=== PATIENT | male | born 1980 | race Caucasian/White ===

== ENCOUNTER 2017-10-01 15:17 | Emergency (ER) | payer OTHER ==
[2017-10-01 15:28] VITALS: BP 121/90
--- NOTE | 2017-10-01 16:13 | EDM.PDOC ---
ED HPI GENERAL MEDICAL PROBLEM - General Chief Complaint: Chest Pain Stated Complaint: CHEST TIGHTNESS/DIZZINESS Time Seen by Provider: 10/01/17 15:25 Source of Information: Reports: Patient, RN Notes Reviewed History Limitations: Reports: No Limitations - History of Present Illness INITIAL COMMENTS - FREE TEXT/NARRATIVE: The patient states that he has had retrosternal chest tightness that has been coming and going for the past 2 weeks. It is a discomfort, not a pain. It will last for about 10-60 minutes, 2-4 times a day, and is not related to anything that the patient is doing, including exertion. The pain does not radiate. He does not have any associated dyspnea, nausea, or diaphoresis, although he has been feeling anxious recently. He states that he has been aware of his heartbeat , although it has been regular, and of a normal rate, not tachycardic or irregular. The patient states that he had similar symptoms in 2009, and after evaluation, was told that it was due to to drinking excessive energy drinks. He was also diagnosed with esophagitis in 2009, by EGD. The patient states that he was seen by his PCP, Dr. Chatman, at the [facility] about 2 weeks ago. An ECG, OBTAINED WHILE HE HAD THE DISCOMFORT, was normal. Dr. Chatman recommended that he come to the ED for additional tests. The patient's other PCP is Tiana Lara. Treatments [employer]: Reports: Other (see below) Other Treatments [employer]: citalpram at 0700 -clonzepam 0700 scheduled Middle Chest Pain Score (Numeric/FACES): 2 - Related Data Allergies Allergy/AdvReac Type Severity Reaction Status Date / Time levofloxacin [From Levaquin] Allergy Joint Pain Verified 05/09/16 12:23 Home Meds: Home Meds ClonazePAM [KlonoPIN] 0.5 mg PO DAILY 09/20/15 [History] Escitalopram [Lexapro] 15 mg PO DAILY 09/20/15 [History] Mesalamine [Lialda] 3 tab PO DAILY 09/20/15 [History] Omeprazole [Prilosec] 20 mg PO DAILY 09/20/15 [History] Cetirizine HCl [Zyrtec] 10 mg PO DAILY PRN 05/09/16 [History] Clotrimazole [Clotrimazole 1%] 1 appful .XX BID 05/09/16 [History] Past Medical History HEENT History: Reports: Allergic Rhinitis Cardiovascular History: Reports: High Cholesterol Gastrointestinal History: Reports: GERD, Inflammatory Bowel Disease (Ulcerative colitis), Other (See Below) (Esophagitis) Psychiatric History: Reports: Anxiety, Depression, Panic Attack, PTSD Endocrine/Metabolic History: Reports: Vitamin D Deficiency - Past Surgical History HEENT Surgical History: Reports: Oral Surgery ([place] teeth extraction) GI Surgical History: Reports: Colonoscopy (x 7), EGD (x 2) Social & Family History - Tobacco Use Smoking Status *Q: Former Smoker Tobacco Use Within Last Twelve Months: Snuff/Dip (Chews 6-8 packets per day x last 1.5 years) Years of Tobacco use: 20 Packs/Tins Daily: 1.5 Month Tobacco Last Used: Quit 2015 Second Hand Smoke Exposure: No - Caffeine Use Caffeine Use: Reports: Coffee, Soda - Alcohol Use Alcohol Use History: Yes Alcohol Use Frequency: Socially - Recreational Drug Use Recreational Drug Use: No - Living Situation & Occupation Living situation: Reports: , with Spouse, with Family (2 kids) Occupation: Employed ED ROS GENERAL - Review of Systems Review Of Systems: See Below Constitutional: Reports: No Symptoms HEENT: Reports: No Symptoms Respiratory: Reports: No Symptoms Cardiovascular: Reports: No Symptoms Endocrine: Reports: No Symptoms GI/Abdominal: Reports: Diarrhea (slight, last night) : Reports: No Symptoms Musculoskeletal: Reports: No Symptoms Skin: Reports: No Symptoms Neurological: Reports: No Symptoms Psychiatric: Reports: No Symptoms Hematologic/Lymphatic: Reports: No Symptoms Immunologic: Reports: No Symptoms ED EXAM, GENERAL - Physical Exam Exam: See Below Exam Limited By: No Limitations General Appearance: Alert, WD/WN, No Apparent Distress Eye Exam: Bilateral Eye: Normal Inspection Ears: Normal External Exam, Hearing Grossly Normal Nose: Normal Inspection, No Blood Throat/Mouth: Normal Inspection, Normal Lips, Normal Voice, No Airway Compromise Head: Atraumatic, Normocephalic Neck: Normal Inspection, Full Range of Motion Respiratory/Chest: No Respiratory Distress, Lungs Clear, Normal Breath Sounds, No Accessory Muscle Use, Chest Non-Tender (including to sternum) Cardiovascular: Normal Peripheral Pulses, Regular Rate, Rhythm, No Gallop, No JVD, No Murmur, No Rub Peripheral Pulses: 4+: Radial (L), Radial (R) GI/Abdominal: Normal Bowel Sounds, Soft, Non-Tender, No Organomegaly, No Distention, No Abnormal Bruit, No Mass (Male) Exam: Deferred Rectal (Males) Exam: Deferred Back Exam: Normal Inspection, Full Range of Motion, NT Extremities: Normal Inspection, Normal Range of Motion, No Pedal Edema, Normal Capillary Refill Neurological: Alert, Oriented, Normal Cognition, No Motor/Sensory Deficits Psychiatric: Normal Affect Skin Exam: Warm, Dry, Intact, Normal Color, No Rash EKG INTERPRETATION EKG Date: 10/01/17 Time: 16:01 Rhythm: NSR Rate (Beats/Min): 63 [place]: Normal P-Wave: Present QRS: Normal ST-T: Other (Diffuse J-point elevation) QT: Normal (Early transition) Comparison: No Change (02/24/2016) Course - Vital Signs Last Recorded V/S: Last Vital Signs Temp 36.4 C 10/01/17 15:27 Pulse 67 10/01/17 15:27 Resp 20 10/01/17 15:27 BP 121/90 10/01/17 15:27 Pulse Ox 96 10/01/17 15:27 - Orders/Labs/Meds Orders: Active Orders 24 hr Category Date Time Status EKG Documentation Completion [RC] STAT Care 10/01/17 15:53 Active Labs: Laboratory Tests 10/01/17 10/01/17 Range/Units 16:20 16:20 WBC 8.59 (4.23-9.07) K/mm3 RBC 4.92 (4.63-6.08) M/mm3 Hgb 14.8 (13.7-17.5) gm/L Hct 44.4 (40.1-51.0) % MCV 90.2 (79.0-92.2) fl MCH 30.1 (25.7-32.2) pg MCHC 33.3 (32.2-35.5) g/dl RDW Std Deviation 46.5 H (35.1-43.9) fL Plt Count 227 (163-337) K/mm3 MPV 10.4 (9.4-12.3) fl Neutrophils % (Manual) 57 (40-60) % Band Neutrophils % 0 (0-10) % Lymphocytes % (Manual) 34 (20-40) % Atypical Lymphs % 0 % Monocytes % (Manual) 9 (2-10) % Eosinophils % (Manual) 0 L (0.8-7.0) % Basophils % (Manual) 0 L (0.2-1.2) Platelet Estimate Adequate Plt Morphology Comment Normal RBC Morph Comment Normal Sodium 139 (136-145) mEq/L Potassium 4.1 (3.5-5.1) mEq/L Chloride 104 (98-107) mEq/L Carbon Dioxide 28 (21-32) mEq/L Anion Gap 11.1 (5-15) BUN 12 (7-18) mg/dL Creatinine 1.1 (0.7-1.3) mg/dL Est Cr Clr Drug Dosing 103.91 mL/min Estimated GFR (MDRD) > 60 (>60) mL/min BUN/Creatinine Ratio 10.9 L (14-18) Glucose 91 (74-106) mg/dL Calcium 9.5 (8.5-10.1) mg/dL Total Bilirubin 0.2 (0.2-1.0) mg/dL AST 23 (15-37) U/L ALT 36 (16-63) U/L Alkaline Phosphatase 107 (46-116) U/L Troponin I < 0.017 (0.00-0.056) ng/mL Total Protein 8.2 (6.4-8.2) g/dl Albumin 3.7 (3.4-5.0) g/dl Globulin 4.5 gm/dL Albumin/Globulin Ratio 0.8 L (1-2) - Re-Assessments/Exams Free Text/Narrative Re-Assessment/Exam: 10/01/17 16:16 Two-view chest radiograph appears to be grossly normal. Cardiac silhouette is within normal limits. No pulmonary vascular congestion. No pleural effusions. No focal infiltrate. No pneumothorax. Formal read per the Radiologist pending. 10/01/17 17:43 Test results discussed with the patient. Today's workup is entirely normal, and does not swing the cause of the patient's symptoms, however, based on today's workup and his history, his symptoms do not appear to be cardiac. If he is still concerned about it, I am recommending that he follow-up with his PCP, Dr. Chatman, at the [facility], who can order an outpatient stress test. Otherwise, I recommended he take [id number] Tylenol or ibuprofen as needed for discomfort. Departure - Departure Time of Disposition: 17:44 Disposition: Home, Self-Care 01 Condition: Good Clinical Impression: Non-cardiac chest pain - Discharge Information Referrals: Brook Chatman DO [Primary Care Provider] - Forms: ED Department Discharge Additional Instructions: You were seen in the emergency room for chest pain that has been coming and going for the past 2 weeks. Workup in the ER included a CBC, CMP, troponin, an ECG, and a chest x-ray. Your entire workup was normal. You have not had a heart attack. You do not have pneumonia. You do not have a collapsed lung. You are not severely anemic. Your electrolyte are normal. The cause of your pain is not clear, but it does not appear to be cardiac. If you are still concerned that it could be your heart, we recommend that you follow-up with your PCP, Dr. Chatman, at the [facility], to arrange for an outpatient stress test. Take [id number] Tylenol or ibuprofen as needed for discomfort. If any other problems, please do not hesitate to return to the ER. - My Orders Last 24 Hours: My Active Orders 10/01/17 15:53 EKG Documentation Completion [RC] STAT - Assessment/Plan Last 24 Hours: My Active Orders 10/01/17 15:53 EKG Documentation Completion [RC] STAT
--- NOTE | 2017-10-01 16:43 | CR ---
Chest: Two views of the chest were obtained. Comparison: Prior chest x-ray of 04/19/13. Minimal linear density is seen anteriorly on the lateral view within the right middle lobe compatible with slight atelectasis. Lungs otherwise are clear. Heart size and mediastinum are normal. Bony structures appear within normal limits for the patient's age. Impression: 1. Incidental atelectasis. Nothing acute is seen on two-view chest x-ray. Diagnostic code #2
== END 2017-10-01 17:54 | disposition home or self-care (01) ==
LOC: JD.ED 15:17
DX: R07.89 Other chest pain (principal); K21.9 Gastro-esophageal reflux disease without esophagitis; E78.00 Pure hypercholesterolemia, unspecified; Z87.891 Personal history of nicotine dependence; Z79.899 Other long term (current) drug therapy; Z88.1 Allergy status to other antibiotic agents
CPT/HCPCS: 36415; 71020; 71020-26; 80053; 84484; 85025; 93005; 93010; 99284; 99285-25

== ENCOUNTER 2018-11-29 03:35 | Emergency (ER) | payer OTHER ==
[2018-11-29 03:48] VITALS: BP 144/98
--- NOTE | 2018-11-29 04:07 | EDM.PDOC ---
ED HPI GENERAL MEDICAL PROBLEM - General Chief Complaint: Chest Pain Stated Complaint: CHEST PAIN Time Seen by Provider: 11/29/18 03:40 Source of Information: Reports: Patient History Limitations: Reports: No Limitations - History of Present Illness INITIAL COMMENTS - FREE TEXT/NARRATIVE: The patient presents with chest pain. This started at 1:15am this morning when the patient was trying to go to bed. He has a history of PTSD and anxiety and he felt that is what it was and he tried a klonazapam and it did not help. He still has the chest pain and he does feel anxious. He has no history of heart disease but he says this has happened a few times. He has no history of DVT or PE. He has no history of hypertension or hyperlipidemia. He does not smoke. He has no shortness of breath but he did have a little nausea with it. Onset: Sudden Duration: Hour(s): Location: Reports: Chest Quality: Reports: Pressure Severity: Moderate Improves with: Reports: None Worsens with: Reports: None Associated Symptoms: Reports: Chest Pain. Denies: Confusion, Cough, Fever/ Chills, Headaches, Nausea/Vomiting, Shortness of Breath Chest Pain Score (Numeric/FACES): 3 - Related Data Allergies Allergy/AdvReac Type Severity Reaction Status Date / Time levofloxacin [From Levaquin] Allergy Joint Pain Verified 11/29/18 03:49 Home Meds: Home Meds ClonazePAM [KlonoPIN] 0.5 mg PO DAILY 09/20/15 [History] Escitalopram [Lexapro] 15 mg PO DAILY 09/20/15 [History] Mesalamine [Lialda] 3 tab PO DAILY 09/20/15 [History] Omeprazole [Prilosec] 20 mg PO DAILY 09/20/15 [History] Cetirizine HCl [Zyrtec] 10 mg PO DAILY PRN 05/09/16 [History] Past Medical History HEENT History: Reports: Allergic Rhinitis Cardiovascular History: Reports: High Cholesterol Gastrointestinal History: Reports: GERD, Inflammatory Bowel Disease (Ulcerative colitis), Other (See Below) (Esophagitis) Other Gastrointestinal History: ulcerative colotis Genitourinary History: Reports: Other (See Below) Other Genitourinary History: proctitis Musculoskeletal History: Reports: Arthritis Psychiatric History: Reports: Anxiety, Depression, Panic Attack, PTSD Endocrine/Metabolic History: Reports: Vitamin D Deficiency Dermatologic History: Reports: Other (See Below) Other Dermatologic History: Dermatitis - Past Surgical History HEENT Surgical History: Reports: Oral Surgery ([place] teeth extraction) GI Surgical History: Reports: Colonoscopy (x 7), EGD (x 2) Social & Family History - Caffeine Use Caffeine Use: Reports: Coffee, Soda - Living Situation & Occupation Living situation: Reports: , with Spouse, with Family (2 kids) Occupation: Employed ED ROS GENERAL - Review of Systems Review Of Systems: See Below Constitutional: Reports: No Symptoms HEENT: Reports: No Symptoms Respiratory: Reports: No Symptoms Cardiovascular: Reports: Chest Pain Endocrine: Reports: No Symptoms GI/Abdominal: Reports: Nausea. Denies: Abdominal Pain, Vomiting Musculoskeletal: Reports: No Symptoms ED EXAM, GENERAL - Physical Exam Exam: See Below Exam Limited By: No Limitations General Appearance: Alert, No Apparent Distress Ears: Normal External Exam Nose: Normal Inspection Head: Atraumatic, Normocephalic Neck: Normal Inspection Respiratory/Chest: No Respiratory Distress, Lungs Clear, Normal Breath Sounds Cardiovascular: Regular Rate, Rhythm, No Edema, No Murmur GI/Abdominal: Soft, Non-Tender, No Organomegaly, No Mass Extremities: Normal Inspection EKG INTERPRETATION EKG Date: 11/29/18 Time: 03:41 Rhythm: NSR Rate (Beats/Min): 68 [place]: Normal P-Wave: Present QRS: Normal ST-T: Normal QT: Normal Course - Vital Signs Last Recorded V/S: Last Vital Signs Temp 97.2 F 11/29/18 03:44 Pulse 71 11/29/18 03:44 Resp 18 11/29/18 03:44 BP 144/98 H 11/29/18 03:44 Pulse Ox 98 11/29/18 03:44 - Orders/Labs/Meds Orders: Active Orders 24 hr Category Date Time Status Cardiac Monitoring [RC] . DIRECTED Care 11/29/18 03:58 Active EKG Documentation Completion [RC] ASDIRECTED Care 11/29/18 03:39 Active Chest 1V Frontal [CR] Stat Exams 11/29/18 03:58 Taken EKG 12 Lead [EK] Stat Ther 11/29/18 03:39 Ordered Labs: Laboratory Tests 11/29/18 11/29/18 Range/Units 04:10 04:10 WBC 8.11 (4.23-9.07) K/mm3 RBC 5.14 (4.63-6.08) M/mm3 Hgb 15.2 (13.7-17.5) gm/L Hct 45.7 (40.1-51.0) % MCV 88.9 (79.0-92.2) fl MCH 29.6 (25.7-32.2) pg MCHC 33.3 (32.2-35.5) g/dl RDW Std Deviation 45.7 H (35.1-43.9) fL Plt Count 232 (163-337) K/mm3 MPV 10.5 (9.4-12.3) fl Neut % (Auto) 52.8 (34.0-67.9) % Lymph % (Auto) 33.7 (21.8-53.1) % [place] % (Auto) 9.5 (5.3-12.2) % Eos % (Auto) 3.1 (0.8-7.0) Baso % (Auto) 0.5 (0.1-1.2) % Neut # (Auto) 4.29 (1.78-5.38) K/mm3 Lymph # (Auto) 2.73 (1.32-3.57) K/mm3 [place] # (Auto) 0.77 (0.30-0.82) K/mm3 Eos # (Auto) 0.25 (0.04-0.54) K/mm3 Baso # (Auto) 0.04 (0.01-0.08) K/mm3 Sodium 135 L (136-145) mEq/L Potassium 3.7 (3.5-5.1) mEq/L Chloride 102 (98-107) mEq/L Carbon Dioxide 25 (21-32) mEq/L Anion Gap 11.7 (5-15) BUN 16 (7-18) mg/dL Creatinine 0.9 (0.7-1.3) mg/dL Est Cr Clr Drug Dosing 125.77 mL/min Estimated GFR (MDRD) > 60 (>60) mL/min BUN/Creatinine Ratio 17.8 (14-18) Glucose 130 H (74-106) mg/dL Calcium 8.7 (8.5-10.1) mg/dL Total Bilirubin 0.2 (0.2-1.0) mg/dL AST 17 (15-37) U/L ALT 36 (16-63) U/L Alkaline Phosphatase 105 (46-116) U/L Troponin I < 0.017 (0.00-0.056) ng/mL Total Protein 8.0 (6.4-8.2) g/dl Albumin 3.6 (3.4-5.0) g/dl Globulin 4.4 gm/dL Albumin/Globulin Ratio 0.8 L (1-2) - Re-Assessments/Exams Free Text/Narrative Re-Assessment/Exam: 11/29/18 04:08 I ordered an EKG, CXR and labs. His EKG shows a NSR with no acute changes. 11/29/18 05:35 His CXR looks good. His CBC looks good. His glucose was 130. His Na was 135. His troponin is normal. He feels better. I feel this was anxiety related. I will discharge him home. Departure - Departure Time of Disposition: 05:40 Disposition: Home, Self-Care 01 Condition: Good Clinical Impression: Anxiety, Atypical chest pain Referrals: PCP,None [Ordering Only Provider] - Forms: ED Department Discharge Additional Instructions: Take your medication as prescribed. Please return if you are worse. - My Orders Last 24 Hours: My Active Orders 11/29/18 03:39 EKG Documentation Completion [RC] ASDIRECTED EKG 12 Lead [EK] Stat 11/29/18 03:58 Cardiac Monitoring [RC] . DIRECTED Chest 1V Frontal [CR] Stat - Assessment/Plan Last 24 Hours: My Active Orders 11/29/18 03:39 EKG Documentation Completion [RC] ASDIRECTED EKG 12 Lead [EK] Stat 11/29/18 03:58 Cardiac Monitoring [RC] . DIRECTED Chest 1V Frontal [CR] Stat
--- NOTE | 2018-11-29 16:59 | CR ---
Chest: Portable view of the chest was obtained. Comparison: Prior chest x-ray of 10/01/17. Heart size and mediastinum are normal. Lungs are clear with no acute parenchymal change. Bony structures are grossly intact. Impression: 1. Nothing acute is seen on portable chest x-ray. Diagnostic code #1
== END 2018-11-29 05:52 | disposition home or self-care (01) ==
LOC: JD.ED 03:35
DX: R07.89 Other chest pain (principal); F41.9 Anxiety disorder, unspecified; E78.00 Pure hypercholesterolemia, unspecified; K21.9 Gastro-esophageal reflux disease without esophagitis; Z79.899 Other long term (current) drug therapy
CPT/HCPCS: 36415; 71045; 71045-26; 80053; 84484; 85025; 93005; 93010; 99284; 99285-25

== ENCOUNTER 2025-04-10 04:25 | Emergency (ER) | payer OTHER ==
[2025-04-10] MEDS ORDERED: Sodium Chloride 0.9% 10 ML Syringe FLUSH PRN (04:49)
[2025-04-10] MEDS: Alum Hydrox/Mag Hydrox/Simeth 30 ML, Lidocaine 2% 15 ML PO ONE (05:09)
[2025-04-10] MEDS: Famotidine 20 MG Tab PO ONE (05:09)
[2025-04-10 05:15] LABS: A/G RATIO 0.9 (1-2); ALBUMIN 3.7 g/dl (3.4-5.0); ANION GAP 12.6 (5-15); BILIRUBIN TOTAL 0.3 mg/dL (0.2-1.0); BUN/CREATININE RATIO 18.3 (14-18); CALCIUM 8.8 mg/dL (8.5-10.1); CREATININE 1.2 mg/dL (0.7-1.3); EST CRCL DRUG DOSING (CG) 87.85 mL/min; TSH 0.807 uIU/mL (0.358-3.74)
[2025-04-10 05:17] LABS: POTASSIUM,K 3.6 mEq/L (3.5-5.1)
[2025-04-10 05:29] LABS: BASOPHILS ABSOLUTE AUTO 0.1 K/mm3 (0.0-0.2); BASOPHILS PERCENT AUTO 0.4 % (0.0-1.0); EOSINOPHILS ABSOLUTE AUTO 0.3 K/mm3 (0.0-0.4); EOSINOPHILS PERCENT AUTO 1.6 % (0.0-6.0); HEMATOCRIT 46.4 % (42.0-52.0); HEMOGLOBIN 15.6 gm/dl (14.0-18.0); IMMATURE GRAN ABSOLUTE AUTO 0.08 K/mm3 (0.00-0.05); IMMATURE GRAN PERCENT AUTO 0.5 % (0.0-0.4); LYMPHOCYTES ABSOLUTE AUTO 4.9 K/mm3 (1.0-4.8); LYMPHOCYTES PERCENT AUTO 31.2 % (24.0-44.0); MEAN CORPUSCULAR HGB CONC 33.6 g/dl (32.0-36.0); MEAN CORPUSCULAR VOLUME 89.2 fl (83.0-99.0); MEAN PLATELET VOLUME 10.7 fl (9.4-12.4); MONOCYTES ABSOLUTE AUTO 1.3 K/mm3 (0.0-0.8); MONOCYTES PERCENT AUTO 8.5 % (0.0-8.0); NEUTROPHILS ABSOLUTE AUTO 9.1 K/mm3 (1.8-7.7); NEUTROPHILS PERCENT AUTO 57.8 % (41.0-71.0); PLATELET COUNT,PLT 294 K/mm3 (150-400); WHITE BLOOD CELL COUNT,WBC 15.82 K/mm3 (3.9-11.3)
[2025-04-10 05:58] VITALS: BP 128/79; PULSE 80
== END 2025-04-10 05:55 | disposition home or self-care (01) ==
LOC: JD.ED 04:25
DX: I49.1 Atrial premature depolarization (principal); R00.2 Palpitations; K21.9 Gastro-esophageal reflux disease without esophagitis; Z88.1 Allergy status to other antibiotic agents; Z91.041 Radiographic dye allergy status; Z79.899 Other long term (current) drug therapy; Z87.891 Personal history of nicotine dependence
CPT/HCPCS: 36415; 71045; 80053; 83690; 83735; 84443; 84484; 85025; 93005; 99285; A9270; 93010; 99284